=== PATIENT | male | born 1980 | race Caucasian/White ===

== ENCOUNTER 2018-10-13 12:10 | Inpatient (IN) | payer OTHER ==
[2018-10-13 16:49] VITALS: BMI 25.1
--- NOTE | 2018-10-13 17:32 | HP ---
Addendum entered and electronically signed by Mary Jane Burton, RESIDENT 10/13/18 17 :52: took methadone dose of 60mg today. will need to be restarted on for tomorrow; dose needs to be verified. pt part of [facility] program Original Note: CIWA Score Nausea/Vomitin-No Nausea/No Vomiting Muscle Tremors: None Anxiety: 0-No Anxiety, at Ease Agitation: 0-Normal Activity Paroxysmal Sweats: No Perspiration Orientation: 0-Oriented Tacttile Disturbances: 0-None Auditory Disturbances: 0-None Visual Disturbances: 0-None Headache: 0-None Present CIWA-Ar Total Score: 0 - Admission Criteria OASAS Guidelines: Admission for Medically Managed Detox: Requires at least one of the followin. CIWA greater than 12 2. Seizures within the past 24 hours 3. Delirium tremens within the past 24 hours 4. Hallucinations within the past 24 hours 5. Acute intervention needed for co occurring medical disorder 6. Acute intervention needed for co occurring psychiatric disorder 7. Severe withdrawal that cannot be handled at a lower level of care (continued vomiting, continued diarrhea, abnormal vital signs) requiring intravenous medication and/or fluids 8. Admission [facility] Chief Complaint: 38 y/o M with hx hepatitis c who presents for rehab from heroin , alcohol and cocaine. Allergies/Adverse Reactions: Allergies Allergy/AdvReac Type Severity Reaction Status Date / Time No Known Allergies Allergy Verified 10/13/18 16:40 History of Present Illness: 38 y/o M with hx hepatitis c(not on tx) who presents for rehab from heroin, cocaine and alcohol. Per pt, last used heroin 4 hrs ago; 2 bags worth via IVDA. Uses 8-9 bags daily. Injects into his arms b/l. No hx endocarditis, abscess or cellulitis. In a methadone program currently on a dose of 60 mg qd. Had been on 30mg previously. Longest sobriety 13 yrs via family support. States that he lost his job, which caused him to relapse. Last drank alcohol today - 3 shots liquor. Drinks this amount daily. No hx alcohol withdrawal sz. Never feels tremulous. Last used cocaine today 2 bags worth via IVDA. Uses speedball. Uses 8 -9 bags daily via IVDA. Was here yesterday for rehab. Was told to increase MTD dosage. however has returned because still concerned over using PMH: as above PsxH: denies meds: denies allergies; NKDA FH: mother - OD SH: cig smoking 1-2 cigs when he uses. Exam Limitations: No Limitations - Ebola screening Have you traveled outside of the country in the last 21 days: No Have you had contact with anyone from an Ebola affected area: No Have you been sick,other than usual withdrawal symptoms: No Do you have a fever: No - Review of Systems Constitutional: Loss of Appetite EENT: reports: No Symptoms Reported Respiratory: reports: No Symptoms reported Cardiac: reports: No Symptoms Reported GI: reports: No Symptoms Reported : reports: No Symptoms Reported Musculoskeletal: reports: No Symptoms Reported Integumentary: reports: No Symptoms Reported Neuro: reports: No Symptoms reported Endocrine: reports: No Symptoms Reported Hematology: reports: No Symptoms Reported Psychiatric: reports: Orientated x3 Patient History - Patient Medical History Hx Anemia: No Hx Asthma: No Hx Chronic Obstructive Pulmonary Disease (COPD): No Hx Cancer: No Hx Cardiac Disorders: No Hx Congestive Heart Failure: No Hx Hypertension: No Hx Hypercholesterolemia: No Hx Pacemaker: No HX Cerebrovascular Accident: No Hx Seizures: No Hx Dementia: No Hx Diabetes: No Hx Gastrointestinal Disorders: No Hx Liver Disease: Yes (HCV ) Hx Genitourinary Disorders: No Hx Sexually Transmitted Disorders: No Hx Renal Disease (ESRD): No Hx Thyroid Disease: No Hx Human Immunodeficiency Virus (HIV): No Hx Hepatitis C: Yes (UNTREATED ) Hx Depression: No Hx Suicide Attempt: No Hx Bipolar Disorder: No Hx Schizophrenia: No - Patient Surgical History Past Surgical History: No - PPD History Documented Results: Negative w/o proof PPD to be Administered?: Yes - Reproductive History Patient is a Female of Child Bearing Age (11 -55 yrs old): No - Smoking Cessation Smoking history: Current every day smoker Have you smoked in the past 12 months: Yes Aproximately how many cigarettes per day: 5 Initiated information on smoking cessation: Yes 'Breaking Loose' booklet given: 10/13/18 - Substance & Tx. History Hx Alcohol Use: Yes Substance Use Type: Alcohol, Cocaine, Heroin Hx Substance Use Treatment: Yes ([facility] yrs ago) - Substances abused Alcohol Other (specify): DENIES ALCOHOL ABUSE OR DEPENDENCE Substance route: Oral Frequency: Daily Amount used: 1/2 pint rum Age of first use: 21 Date of last use: 10/13/18 Heroin Substance route: Injection Frequency: Daily Amount used: 10 bags Age of first use: 21 Date of last use: 10/13/18 Cocaine Substance route: Injection Frequency: Daily Amount used: 9-10 Age of first use: Date of last use: 10/13/18 Family Disease History - Family Disease History Family Disease History: Other: Mother (overdose) Admission Physical Exam [facility] - Vital Signs Vital Signs: Vital Signs - 24 hr 10/13/18 16:42 Temperature 97.6 F Pulse Rate 61 Respiratory 18 Rate Blood Pressure 116/72 - Physical General Appearance: Yes: Within Normal Limits HEENTM: Yes: Within Normal Limits Respiratory: Yes: Within Normal Limits, Lungs Clear Neck: Yes: Supple Breast: Yes: Breast Exam Deferred Cardiology: Yes: Regular Rhythm, Regular Rate, S1, S2 Abdominal: Yes: Within Normal Limits Genitourinary: Yes: Within Normal Limits Back: Yes: Within Normal Limits Musculoskeletal: Yes: Within Normal Limits Extremities: Yes: Other (+ue track george, tattoos) 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 Integumentary: Yes: Within Normal Limits Lymphatic: Yes: Within Normal Limits - Diagnostic (1) Nicotine dependence Current Visit: Yes Status: Chronic (2) Cocaine dependence Current Visit: Yes Status: Chronic (3) HCV (hepatitis C virus) Current Visit: Yes Status: Chronic (4) Opioid dependence on agonist therapy Current Visit: Yes Status: Chronic Cleared for Admission [facility] - Detox or Rehab [facility] Level of Care: Medically Managed Detox Regimen/Protocol: Not Applicable Claeared for Rehab Admission: Yes Breathalyzer - Breathalyzer Breathalyzer: 0 Urine Drug Screen - Test Device Lot number: [id number] Expiration date: 07/18/18 - Control Is test valid?: Yes - Results Drug screen NEGATIVE: No Urine drug screen results: CHRIS-Cocaine, FEN-Fentanyl, MOP-Opiates, OXY-Oxycodone , MTD-Methadone Inpatient Rehab Admission - Rehab Decision to Admit Inpatient rehab admission?: Yes - Initial Determination Are CD services needed?: Yes Free of communicable disease: Yes Not in need of hospitalization: Yes - Rehab Admission Criteria Previous failed treatment: Yes Poor recovery environment: Yes Comorbidities: Yes Lacks judgement: No Patient is meeting Inpatient Rehab admission criteria:: Yes
[2018-10-13] MEDS ORDERED: IBUPROFEN 400 MG TABLET (FP) PO PRN (17:49)
[2018-10-13] MEDS ORDERED: LOPERAMIDE HCL 2 MG CAPSULE PO PRN (17:49)
[2018-10-13] MEDS ORDERED: guaiFENesin 200 MG/10 ML 10 ML UNIT-DOSE CUPS PO PRN (17:49)
[2018-10-13] MEDS ORDERED: MENTHOL/PHENOL 1 EACH UD MM PRN (17:49)
[2018-10-13] MEDS ORDERED: hydrOXYzine PAMOATE 25 MG CAPSULE (FP) PO PRN (17:49)
[2018-10-13] MEDS ORDERED: MAG HYDROX/AL HYDROX/SIMETH 30 ML UNIT-DOSE CUP PO PRN (17:49)
[2018-10-13] MEDS ORDERED: P-EPHED 60MG/TRIPROLIDI 2.5MG TABLET PO PRN (17:49)
[2018-10-13] MEDS ORDERED: MAGNESIUM HYDROX 2400MG/30ML ORAL SUSPENSION 30 ML CUP PO PRN (17:49)
[2018-10-13] MEDS ORDERED: ACETAMINOPHEN 325 MG TABLET (FP) PO PRN (17:49)
--- NOTE | 2018-10-13 17:52 | PN ---
Teaching Attending Note Name of Resident: Mary Jane Burton ATTENDING PHYSICIAN STATEMENT I saw and evaluated the patient. I reviewed the resident's note and discussed the case with the resident. I agree with the resident's findings and plan as documented. SUBJECTIVE: pt here requesting detox . Claims etoh use - pt was here 2 days ago ( see note 10/11/18 ) denying alcohol use , today states 3 shots/day , denies blackouts/ tremors or seizures . opiate use : heroin ivdu in [place] [facility] , 8-9 bags daily while in [facility] 60 mg @ [facility] x 1 yr . Longest sobriety 13 yrs via family support. cocaine: 2 bags today via IVDU , usually 8-9 bags daily via IVDU. OBJECTIVE: wnwd , no distress resp : no distress noted ASSESSMENT AND PLAN: cocaine dependence - rehab opioid dependence on agonist therapy Problem List - Problems (1) Cocaine dependence Code(s): F14.20 - COCAINE DEPENDENCE, UNCOMPLICATED Qualifiers: Substance use status: uncomplicated Qualified Code(s): F14.20 - Cocaine dependence, uncomplicated (2) Opioid dependence on agonist therapy Code(s): F11.20 - OPIOID DEPENDENCE, UNCOMPLICATED
[2018-10-14] MEDS: PRENATAL VITAMINS W/ FOLIC ACID TABLET (FP) PO SCH (10:32)
[2018-10-14 10:34] LABS: HEMATOCRIT 35.8 % (35.4-49); HEMOGLOBIN 12.2 GM/dL (11.7-16.9); MEAN CELL VOLUME 88.1 fl (80-96); MEAN PLT VOLUME 9.8 fl (7.5-11.1); PLATELET COUNT 221 K/MM3 (134-434); RBC 4.06 M/mm3 (4.00-5.60); RDW 12.7 % (11.9-15.9); WHITE BLOOD COUNT 3.9 K/mm3 (4.0-10.0)
[2018-10-14 10:35] LABS: ALBUMIN 3.2 g/dl (3.4-5.0); BILIRUBIN,TOTAL 0.3 mg/dL (0.2-1); BLOOD UREA NITROGEN 12.9 mg/dL (7-18); CALCIUM 8.6 mg/dL (8.5-10.1); CREATININE 0.8 mg/dL (0.55-1.3); POTASSIUM 4.5 mmol/L (3.5-5.1); TOT PROT 6.8 g/dl (6.4-8.2)
[2018-10-14] MEDS ORDERED: METHADONE HCL 10 MG TABLET PO SCH (13:00)
[2018-10-14] MEDS ORDERED: METHADONE HCL 10 MG TABLET ONE (13:42)
[2018-10-14] MEDS ORDERED: METHADONE HCL 40 MG DISPERSABLE TABLET ONE (13:42)
[2018-10-14] MEDS: METHADONE 40 MG, METHADONE 20 MG PO SCH (13:43)
[2018-10-15] MEDS ORDERED: METHADONE HCL 10 MG TABLET ONE (05:46)
[2018-10-15] MEDS ORDERED: METHADONE HCL 40 MG DISPERSABLE TABLET ONE (05:46)
[2018-10-15] MEDS: METHADONE 40 MG, METHADONE 20 MG PO SCH (06:43)
[2018-10-15] MEDS: PRENATAL VITAMINS W/ FOLIC ACID TABLET (FP) PO SCH (10:14)
[2018-10-15] MEDS: MELATONIN 5 MG TABLETS PO PRN (21:45)
[2018-10-16] MEDS ORDERED: METHADONE HCL 10 MG TABLET ONE (06:21)
[2018-10-16] MEDS: METHADONE 40 MG, METHADONE 20 MG PO SCH (06:22)
[2018-10-16] MEDS ORDERED: METHADONE HCL 40 MG DISPERSABLE TABLET ONE (06:22)
[2018-10-16] MEDS: PRENATAL VITAMINS W/ FOLIC ACID TABLET (FP) PO SCH (10:16)
[2018-10-16] MEDS: MELATONIN 5 MG TABLETS PO PRN (22:02)
[2018-10-17] MEDS: METHADONE 40 MG, METHADONE 20 MG PO SCH (06:18)
[2018-10-17] MEDS ORDERED: METHADONE HCL 40 MG DISPERSABLE TABLET ONE (06:18)
[2018-10-17] MEDS ORDERED: METHADONE HCL 10 MG TABLET ONE (06:18)
[2018-10-17] MEDS: PRENATAL VITAMINS W/ FOLIC ACID TABLET (FP) PO SCH (10:23)
[2018-10-17] MEDS: MELATONIN 5 MG TABLETS PO PRN (21:31)
[2018-10-18] MEDS ORDERED: METHADONE HCL 10 MG TABLET ONE (05:58)
[2018-10-18] MEDS ORDERED: METHADONE HCL 40 MG DISPERSABLE TABLET ONE (05:58)
[2018-10-18] MEDS: METHADONE 40 MG, METHADONE 20 MG PO SCH (06:25)
[2018-10-18 06:45] VITALS: BP 109/72
[2018-10-18] MEDS: PRENATAL VITAMINS W/ FOLIC ACID TABLET (FP) PO SCH (11:00)
[2018-10-18] MEDS: MELATONIN 5 MG TABLETS PO PRN (21:28)
[2018-10-19] MEDS ORDERED: METHADONE HCL 10 MG TABLET ONE (05:48)
[2018-10-19] MEDS ORDERED: METHADONE HCL 40 MG DISPERSABLE TABLET ONE (05:48)
[2018-10-19] MEDS: METHADONE 40 MG, METHADONE 20 MG PO SCH (06:36)
[2018-10-19 07:05] VITALS: PULSE 67; TEMP 98.1
--- NOTE | 2018-10-19 10:05 | PN ---
[facility] Progress Note (SOAP) Subjective: pt is a 38 y/o male admitted to rehab on 10/13/18 requesting to sign out today stating "I got things to do. My family is coming to pick me up". Pt with a hx of i.v heroin and cocaine use on methadone maintenance with [facility] services. Pt reports hx hep c and denies past psych hx. Pt is new to this facility and has a hx of ppd+(QTF+ on 10/14/18 here) and decline to follow through with chest xray while here in rehab because he wants to leave today. [facility] and spoke to certified nursing assistant instructor Hattie Brock RN to verify pt' s status and previous test/treatment. Ms. Brock was unable to give information as she could not reach anyone in their medical records section. Pt will follow up tomorrow with his [facility] and Ms. brock has been updated on patient's situation. Pt denies s/h/i. Objective: 10/19/18 10:33 Alert o x 3 Ambulating with steady gait Vital Signs - 24 hr 10/19/18 10/19/18 10/19/18 00:30 03:30 07:04 Temperature 98.1 F Pulse Rate 67 Respiratory 18 18 16 Rate Laboratory Tests 10/14/18 10/14/18 10/14/18 07:50 07:50 07:50 WBC 3.9 L RBC 4.06 Hgb 12.2 Hct 35.8 MCV 88.1 MCH 30.0 MCHC 34.0 RDW 12.7 Plt Count 221 MPV 9.8 Sodium 143 Potassium 4.5 Chloride 110 H Carbon Dioxide 27 Anion Gap 6 L BUN 12.9 Creatinine 0.8 Est GFR (CKD-EPI)AfAm 129.51 Est GFR (CKD-EPI)NonAf 111.74 Random Glucose 86 Calcium 8.6 Total Bilirubin 0.3 AST 22 ALT 34 Alkaline Phosphatase 73 Total Protein 6.8 Albumin 3.2 L RPR Titer Nonreactive TB (QFT) Incubation TB Test (QFT) Nil TB Test (QFT) Mitogen TB Test (QFT) Antigen TB Test (QFT) TB Positive Criteria 10/14/18 07:50 WBC RBC Hgb Hct MCV MCH MCHC RDW Plt Count MPV Sodium Potassium Chloride Carbon Dioxide Anion Gap BUN Creatinine Est GFR (CKD-EPI)AfAm Est GFR (CKD-EPI)NonAf Random Glucose Calcium Total Bilirubin AST ALT Alkaline Phosphatase Total Protein Albumin RPR Titer TB (QFT) Incubation TB Test (QFT) Nil 0.14 TB Test (QFT) Mitogen 7.14 TB Test (QFT) Antigen 2.64 TB Test (QFT) Positive H TB Positive Criteria lab results given to pt to follow up with medical provider. Home Medications Medication Instructions Recorded Methadone [Dolophine -] 60 mg PO DAILY 10/11/18 Assessment: 10/19/18 10:34 Nad Asymptomatic Incomplete Treatment [facility] Inpatient Services Medical - Diagnosis (1) Cocaine dependence Qualifiers: Substance use status: uncomplicated Qualified Code(s): F14.20 - Cocaine dependence, uncomplicated Current Visit: Yes Status: Chronic (2) HCV (hepatitis C virus) Current Visit: Yes Status: Chronic (3) Nicotine dependence Qualifiers: Nicotine product type: cigarettes Substance use status: uncomplicated Qualified Code(s): F17.210 - Nicotine dependence, cigarettes, uncomplicated Current Visit: Yes Status: Chronic (4) Opioid dependence on agonist therapy Current Visit: Yes Status: Chronic (5) IVDU (intravenous drug user) Current Visit: Yes Status: Chronic Initialized on 10/19/18 10:05 - END OF NOTE 10/19/18 10:53 Plan: Pt signed out AMA Follow up with CD aftercare @ [facility] [place] as recommended. Follow up with primary care at [facility] within 1-2 weeks after discharge.
[2018-10-19] MEDS: PRENATAL VITAMINS W/ FOLIC ACID TABLET (FP) PO SCH (11:33)
== END 2018-10-19 11:00 | disposition left against medical advice (07) | DRG 770 ==
LOC: YASAS 12:10 → Y5N 17:53
PROVIDERS: ADMIT Neuromusculoskeletal Medicine & OMM; ATTEND Surgery
PROC: HZ42ZZZ Group Counseling for Substance Abuse Treatment, Cognitive-Behavioral (ICD-10-PCS; principal; 2018-10-13)
DX: F14.20 Cocaine dependence, uncomplicated (principal); F11.20 Opioid dependence, uncomplicated; F17.210 Nicotine dependence, cigarettes, uncomplicated; B18.2 Chronic viral hepatitis C
CPT/HCPCS: 36415; 80053; 85027; 86480; 86593

== ENCOUNTER 2019-03-14 10:52 | Inpatient (IN) | payer OTHER ==
[2019-03-14 11:24] VITALS: BMI 26.6
--- NOTE | 2019-03-14 12:19 | HP ---
COWS - Scale Resting Pulse: 1= [place] 81-100 Sweatin= Chills/Flushing Restless Observation: 1= Difficult to Sit Still Pupil Size: 1= Pupils >than Normal Bone or Joint Aches: 2= Severe Diffuse Aches Runny Nose/ Eye Tearin= Runny Nose/Eyes GI Upset > 30mins: 3= Vomiting/Diarrhea Tremor Observation: 2= Slight Tremor Visible Yawning Observation: 1= 1-2x During Session Anxiety or Irritability: 2=Irritable/Anxious Goose Flesh Skin: 0=Smooth Skin COWS Score: 16 CIWA Score - Admission Criteria OASAS Guidelines: Admission for Medically Managed Detox: Requires at least one of the followin. CIWA greater than 12 2. Seizures within the past 24 hours 3. Delirium tremens within the past 24 hours 4. Hallucinations within the past 24 hours 5. Acute intervention needed for co occurring medical disorder 6. Acute intervention needed for co occurring psychiatric disorder 7. Severe withdrawal that cannot be handled at a lower level of care (continued vomiting, continued diarrhea, abnormal vital signs) requiring intravenous medication and/or fluids 8. Admitting History and Physical - Admission Chief Complaint: i need help to stop using heroin,cocaine,marijuana History of Present Illness: this 38 year old male with heroin,cocaine and marijuana dependence,seeking detox ,withdrawal symptom multiple admission [facility] detox,last detox [facility] in 01/06 not completed hepatitis c seen in [facility] denied seizure denied syncope nicotine dependence 3 cigarette anxiety,depression,insomnia plan for rehab after detox weight loss 20 lbs History Source: Patient Limitations to Obtaining History: No Limitations - Past Medical History Hepatobiliary: Yes: Hepatitis C Psych: Yes: Anxiety, Depression, Other (insomnia) - Smoking History Smoking history: Current every day smoker Have you smoked in the past 12 months: Yes Aproximately how many cigarettes per day: 5 - Alcohol/Substance Use Hx Alcohol Use: Yes - Social History Usual Living Arrangement: Yes: Other (with and children) ADL: Support Services Occupation: unemployed History of Recent Travel: No Other Social History: this 38 years old male with heroin,cociane and marijuana dependence,seeking detox,withdraawal symptom,unemploed,nena with family, and children,. for inpatient detox methadone regimen,medicaaly manage Admission ROS [facility] - HPI Chief Complaint: i need help to stop sing heroin,cocaine and marijuana Allergies/Adverse Reactions: Allergies Allergy/AdvReac Type Severity Reaction Status Date / Time Fish Containing Products Allergy Verified 03/14/19 11:26 History of Present Illness: for detox Exam Limitations: No Limitations - Ebola screening Have you traveled outside of the country in the last 21 days: No (N) Have you had contact with anyone from an Ebola affected area: No Do you have a fever: No - Review of Systems Constitutional: Chills, Loss of Appetite, Night Sweats, Changes in sleep, Weakness, Weight Stable, Unintentional Wgt. Loss EENT: reports: Tearing, Nose Congestion Respiratory: reports: No Symptoms reported Cardiac: reports: No Symptoms Reported GI: reports: Diarrhea, Nausea, Vomiting : reports: No Symptoms Reported Musculoskeletal: reports: Back Pain, Joint Pain, Muscle Pain Integumentary: reports: Dryness Neuro: reports: Headache, Tremors Endocrine: reports: No Symptoms Reported Hematology: reports: No Symptoms Reported Psychiatric: reports: No Sypmtoms Reported, Judgement Intact, Mood/Affect Appropiate, Orientated x3, Anxious (insomnia) Other Systems: Reviewed and Negative Patient History - Patient Medical History Hx Anemia: No Hx Asthma: No Hx Chronic Obstructive Pulmonary Disease (COPD): No Hx Cancer: No Hx Cardiac Disorders: No Hx Congestive Heart Failure: No Hx Hypertension: No Hx Hypercholesterolemia: No Hx Pacemaker: No HX Cerebrovascular Accident: No Hx Seizures: No Hx Dementia: No Hx Diabetes: No Hx Gastrointestinal Disorders: No Hx Liver Disease: Yes (HCV hepatitis c) Hx Genitourinary Disorders: No Hx Sexually Transmitted Disorders: No Hx Renal Disease (ESRD): No Hx Thyroid Disease: No Hx Human Immunodeficiency Virus (HIV): No Hx Hepatitis C: Yes (UNTREATED ,seen in [facility]) Hx Depression: Yes (anxiety) Hx Suicide Attempt: No Hx Bipolar Disorder: No Hx Schizophrenia: No Other Medical History: insomnia,no suicidal,no homicidal - Patient Surgical History Past Surgical History: No Hx Neurologic Surgery: No Hx Cataract Extraction: No Hx Cardiac Surgery: No Hx Lung Surgery: No Hx Breast Surgery: No Hx Breast Biopsy: No Hx Abdominal Surgery: No Hx Appendectomy: No Hx Cholecystectomy: No Hx Genitourinary Surgery: No Hx Section: No Hx Orthopedic Surgery: No Anesthesia Reaction: No - PPD History Documented Results: Positive w/o proof PPD to be Administered?: No - Smoking Cessation Smoking history: Current every day smoker Have you smoked in the past 12 months: Yes Aproximately how many cigarettes per day: 5 Initiated information on smoking cessation: Yes 'Breaking Loose' booklet given: 03/14/19 - Substance & Tx. History Hx Alcohol Use: Yes Hx Substance Use: Yes Substance Use Type: Alcohol, Cocaine, Heroin, Marijuana Hx Substance Use Treatment: Yes ([facility] 01/06) - Substances abused Alcohol Other (specify): DENIES ALCOHOL ABUSE OR DEPENDENCE Substance route: Oral Frequency: Daily Amount used: 1/2 pint rum Age of first use: 21 Date of last use: 10/13/18 Heroin Substance route: Injection Frequency: Daily Amount used: 10 bags Age of first use: 25 Date of last use: 03/14/19 Cocaine Substance route: Injection Frequency: Daily Amount used: 1 bundle Age of first use: 25 Date of last use: 03/14/19 Marijuana/Hashish Substance route: Smoking Frequency: 1-3 times last 30 days Amount used: 5$ Age of first use: 8 Date of last use: 03/07/19 Admission Physical Exam S - Vital Signs Vital Signs: Vital Signs - 24 hr 03/14/19 11:18 Temperature 98 F Pulse Rate 84 Respiratory 20 Rate Blood Pressure 124/67 - Physical General Appearance: Yes: Moderate Distress, Tremorous, Irritable, Sweating, Anxious HEENTM: Yes: Normal ENT Inspection, PANDA, Pharynx Normal Respiratory: Yes: Within Normal Limits Neck: Yes: Within Normal Limits, Supple, Trachea in good position Breast: Yes: Within Normal Limits Cardiology: Yes: Within Normal Limits, Regular Rhythm, Regular Rate, S1, S2 Abdominal: Yes: Within Normal Limits, Normal Bowel Sounds, Non Tender, Flat, Soft Genitourinary: Yes: Within Normal Limits Back: Yes: Muscle Spasm Musculoskeletal: Yes: Back pain, Muscle Pain Extremities: Yes: Tremors 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, Fully Oriented, Alert, Motor Strength 5/5 Integumentary: Yes: Dry Lymphatic: Yes: Within Normal Limits - Diagnostic (1) Opioid dependence with withdrawal Current Visit: Yes Status: Acute (2) Cocaine dependence Current Visit: No Status: Chronic Qualifiers: Substance use status: uncomplicated Qualified Code(s): F14.20 - Cocaine dependence, uncomplicated (3) IVDU (intravenous drug user) Current Visit: No Status: Chronic (4) Nicotine dependence Current Visit: No Status: Chronic Qualifiers: Nicotine product type: cigarettes Substance use status: uncomplicated Qualified Code(s): F17.210 - Nicotine dependence, cigarettes, uncomplicated (5) Weight loss Current Visit: Yes Status: Acute (6) Dehydration Current Visit: Yes Status: Acute Cleared for Admission S - Detox or Rehab [facility] Level of Care: Medically Managed Detox Regimen/Protocol: Methadone Breathalyzer - Breathalyzer Breathalyzer: 0 Urine Drug Screen - Test Device Lot number: [id number] Expiration date: 10/18/20 - Control Is test valid?: Yes - Results Drug screen NEGATIVE: No Urine drug screen results: THC-Marijuana, CHRIS-Cocaine, FEN-Fentanyl, MOP-Opiates , MTD-Methadone Inpatient Rehab Admission - Rehab Decision to Admit Inpatient rehab admission?: No
[2019-03-14] MEDS ORDERED: MAGNESIUM CITRATE 300 ML BOTTLE PO PRN (12:35)
[2019-03-14] MEDS ORDERED: hydrOXYzine PAMOATE 25 MG CAPSULE (FP) PO PRN (12:35)
[2019-03-14] MEDS ORDERED: cloNIDine HCL 0.1 MG TABLET PO PRN (12:35)
[2019-03-14] MEDS ORDERED: BISMUTH SUBSALICYLATE 524 MG/30 ML UD PO PRN (12:35)
[2019-03-14] MEDS ORDERED: MAGNESIUM HYDROX 2400MG/30ML ORAL SUSPENSION 30 ML CUP PO PRN (12:35)
[2019-03-14] MEDS ORDERED: METHADONE HCL 10 MG TABLET (FOR DETOX USE ONLY) PO ONE (12:35)
[2019-03-14] MEDS ORDERED: MENTHOL/PHENOL 1 EACH UD MM PRN (12:35)
[2019-03-14] MEDS ORDERED: IBUPROFEN 400 MG TABLET (FP) PO PRN (12:35)
[2019-03-14] MEDS ORDERED: ACETAMINOPHEN 325 MG TABLET (FP) PO PRN ×2 (12:35)
[2019-03-14] MEDS ORDERED: MAG HYDROX/AL HYDROX/SIMETH 30 ML UNIT-DOSE CUP PO PRN (12:35)
[2019-03-14] MEDS: diazePAM 5 MG TABLET PO PRN ×2 (13:38→22:33)
[2019-03-14] MEDS: HYDROCORTISONE 0.5% TOPICAL CREAM 30 GM TUBE TP SCH ×2 (15:00→23:08)
[2019-03-14] MEDS: THIAMINE HCL 100 MG TABLET (FP) PO SCH (22:31)
[2019-03-14] MEDS: MELATONIN 5 MG TABLETS PO PRN (22:32)
[2019-03-14] MEDS: METHOCARBAMOL 500 MG TABLET PO PRN (22:33)
[2019-03-15] MEDS: HYDROCORTISONE 0.5% TOPICAL CREAM 30 GM TUBE TP SCH ×3 (05:41→22:31)
[2019-03-15] MEDS ORDERED: METHADONE HCL 10 MG TABLET (FOR DETOX USE ONLY) ONE (09:33)
[2019-03-15] MEDS ORDERED: METHADONE HCL 5 MG TABLET (FOR DETOX USE ONLY) ONE (09:33)
[2019-03-15] MEDS ORDERED: METHADONE (DETOX) 20 MG, METHADONE (DETOX) 5 MG PO ONE (10:00)
--- NOTE | 2019-03-15 10:09 | CONSULT ---
[facility] Psychiatric Consult - Data Date of interview: 03/15/19 Admission source: Self-referred Identifying data: Mr Dhaliwal is a 38 years old male, father of 3 children, unemployed with no source of income, living with and children seeking detox treatment for opioid, cocaine and cannabis Substance Abuse History: Reports history of heroin, cocaine and marijuana use. Refer to addiction counselor's summary for further information Medical History: Significant for hepatitis C. Smokes 5 cigarettes daily Psychiatric History: Denies history of previous psychiatric treatment. However, reports experiencing difficulty to sleep Physical/Sexual Abuse/Trauma History: Denies history of abuse as a child or DV relationship as an adult Mental Status Exam - Mental Status Exam Alert and Oriented to: Time, Place, Person Patient Appearance: Disheveled Mood: Hopeful, Euthymic Patient Behavior: Cooperative Speech Pattern: Clear Voice Loudness: Normal Thought Process: Intact, Goal Oriented Thought Disorder: Not Present Hallucinations: Denies Suicidal Ideation: Denies Homicidal Ideation: Denies Insight/Judgement: Poor Sleep: Poorly Appetite: Good Muscle strength/Tone: Normal Gait/Station: Normal Psychiatric Findings - Problem List ([place] 1, 2,3) (1) Substance-induced sleep disorder Current Visit: Yes Status: Acute (2) Opioid dependence with withdrawal Current Visit: Yes Status: Acute (3) Cocaine dependence Current Visit: No Status: Acute Qualifiers: Substance use status: uncomplicated Qualified Code(s): F14.20 - Cocaine dependence, uncomplicated (4) Cannabis abuse Current Visit: Yes Status: Acute (5) Nicotine dependence Current Visit: No Status: Chronic Qualifiers: Nicotine product type: cigarettes Substance use status: uncomplicated Qualified Code(s): F17.210 - Nicotine dependence, cigarettes, uncomplicated (6) Hepatitis C Current Visit: Yes Status: Acute - Initial Treatment Plan Initial Treatment Plan: 1) Start Melatonin 5 mg po HS. 2) Continue inpatient detoxification
[2019-03-15] MEDS: PRENATAL VITAMINS W/ FOLIC ACID TABLET (FP) PO SCH (10:10)
[2019-03-15 10:11] LABS: HEMATOCRIT 37.1 % (35.4-49); HEMOGLOBIN 12.8 GM/dL (11.7-16.9); MCH 31.2 pg (25.7-33.7); MCHC 34.5 g/dl (32.0-35.9); MEAN CELL VOLUME 90.3 fl (80-96); MEAN PLT VOLUME 9.6 fl (7.5-11.1); PLATELET COUNT 190 K/MM3 (134-434); RBC 4.11 M/mm3 (4.00-5.60); RDW 13.4 % (11.9-15.9); WHITE BLOOD COUNT 5.2 K/mm3 (4.0-10.0)
[2019-03-15] MEDS: diazePAM 5 MG TABLET PO PRN ×2 (10:12→22:34)
[2019-03-15 10:25] LABS: ALBUMIN 3.2 g/dl (3.4-5.0); BILIRUBIN,TOTAL 0.2 mg/dL (0.2-1); BLOOD UREA NITROGEN 18.1 mg/dL (7-18); CALCIUM 8.2 mg/dL (8.5-10.1); CREATININE 0.8 mg/dL (0.55-1.3); POTASSIUM 3.8 mmol/L (3.5-5.1); TOT PROT 6.2 g/dl (6.4-8.2)
[2019-03-15] MEDS ORDERED: FLU VACCINE QUAD 60 MCG/0.5 ML (MDV 19-20) IM ONE (12:00)
--- NOTE | 2019-03-15 12:10 | PN ---
S COWS - Scale Resting Pulse: 0= DE 80 or Below Sweatin= Beads of Sweat on Face Restless Observation: 1= Difficult to Sit Still Pupil Size: 0= Normal to Room Light Bone or Joint Aches: 2= Severe Diffuse Aches Runny Nose/ Eye Tearin= None GI Upset > 30mins: 0= None Tremor Observation of Outstretched Hands: 2= Slight Tremor Visible Yawning Observation: 1= 1-2x During Session Anxiety or Irritability: 2=Irritable/Anxious Goose Flesh Skin: 0=Smooth Skin COWS Score: 11 S Progress Note (SOAP) Subjective: c/o irritability, anxiety, sweats, shakes, and muscle aches. Objective: 03/15/19 12:10 Vital Signs 03/15/19 03/15/19 06:36 09:13 Temperature 97.7 F 98.9 F Pulse Rate 72 80 Respiratory 18 18 Rate Blood Pressure 115/70 131/73 Laboratory Last Values WBC 5.2 K/mm3 (4.0-10.0) 03/15/19 07:10 RBC 4.11 M/mm3 (4.00-5.60) 03/15/19 07:10 Hgb 12.8 GM/dL (11.7-16.9) 03/15/19 07:10 Hct 37.1 % (35.4-49) 03/15/19 07:10 MCV 90.3 fl (80-96) 03/15/19 07:10 MCH 31.2 pg (25.7-33.7) 03/15/19 07:10 MCHC 34.5 g/dl (32.0-35.9) 03/15/19 07:10 RDW 13.4 % (11.9-15.9) 03/15/19 07:10 Plt Count 190 K/MM3 (134-434) 03/15/19 07:10 MPV 9.6 fl (7.5-11.1) 03/15/19 07:10 Sodium 141 mmol/L (136-145) 03/15/19 07:10 Potassium 3.8 mmol/L (3.5-5.1) 03/15/19 07:10 Chloride 110 mmol/L (98-107) H 03/15/19 07:10 Carbon Dioxide 27 mmol/L (21-32) 03/15/19 07:10 Anion Gap 3 MMOL/L (8-16) L 03/15/19 07:10 BUN 18.1 mg/dL (7-18) H 03/15/19 07:10 Creatinine 0.8 mg/dL (0.55-1.3) 03/15/19 07:10 Est GFR (CKD-EPI)AfAm 129.51 03/15/19 07:10 Est GFR (CKD-EPI)NonAf 111.74 03/15/19 07:10 Random Glucose 121 mg/dL (74-106) H 03/15/19 07:10 Calcium 8.2 mg/dL (8.5-10.1) L 03/15/19 07:10 Total Bilirubin 0.2 mg/dL (0.2-1) 03/15/19 07:10 AST 33 U/L (15-37) 03/15/19 07:10 ALT 56 U/L (13-61) 03/15/19 07:10 Alkaline Phosphatase 66 U/L (45-117) 03/15/19 07:10 Total Protein 6.2 g/dl (6.4-8.2) L 03/15/19 07:10 Albumin 3.2 g/dl (3.4-5.0) L 03/15/19 07:10 RPR Titer Nonreactive (NONREACTIVE) 03/15/19 07:10 Labs noted. Assessment: 03/15/19 12:11 AOX3, in no respiratory distress. Full ROM, ambulating in the unit. Withdrawal symptoms. Plan: continue detox.
[2019-03-15] MEDS: THIAMINE HCL 100 MG TABLET (FP) PO SCH (22:31)
[2019-03-15] MEDS: MELATONIN 5 MG TABLETS PO PRN (22:32)
[2019-03-16] MEDS: HYDROCORTISONE 0.5% TOPICAL CREAM 30 GM TUBE TP SCH ×3 (06:06→21:29)
[2019-03-16] MEDS ORDERED: METHADONE HCL 10 MG TABLET (FOR DETOX USE ONLY) PO ONE (10:00)
[2019-03-16] MEDS: PRENATAL VITAMINS W/ FOLIC ACID TABLET (FP) PO SCH (10:08)
[2019-03-16] MEDS: diazePAM 5 MG TABLET PO PRN ×2 (10:10→21:32)
--- NOTE | 2019-03-16 10:48 | PN ---
[facility] COWS - Scale Resting Pulse: 0= [place] 80 or Below Sweatin= Chills/Flushing Restless Observation: 1= Difficult to Sit Still Pupil Size: 0= Normal to Room Light Bone or Joint Aches: 2= Severe Diffuse Aches Runny Nose/ Eye Tearin= Runny Nose/Eyes GI Upset > 30mins: 0= None Tremor Observation of Outstretched Hands: 1= Tremor [place], Not Seen Yawning Observation: 1= 1-2x During Session Anxiety or Irritability: 2=Irritable/Anxious Goose Flesh Skin: 0=Smooth Skin COWS Score: 10 BHS Progress Note (SOAP) Subjective: nasal congestions sweats chills body aches headache interrupted sleep Objective: 03/16/19 10:47 Vital Signs Temperature 98.1 F 03/16/19 09:14 Pulse Rate 74 03/16/19 09:14 Respiratory Rate 18 03/16/19 09:14 Blood Pressure 131/79 03/16/19 09:14 O2 Sat by Pulse Oximetry (%) Laboratory Tests 03/15/19 03/15/19 03/15/19 07:10 07:10 07:10 WBC 5.2 RBC 4.11 Hgb 12.8 Hct 37.1 MCV 90.3 MCH 31.2 MCHC 34.5 RDW 13.4 Plt Count 190 MPV 9.6 Sodium 141 Potassium 3.8 Chloride 110 H Carbon Dioxide 27 Anion Gap 3 L BUN 18.1 H Creatinine 0.8 Est GFR (CKD-EPI)AfAm 129.51 Est GFR (CKD-EPI)NonAf 111.74 Random Glucose 121 H Calcium 8.2 L Total Bilirubin 0.2 AST 33 ALT 56 Alkaline Phosphatase 66 Total Protein 6.2 L Albumin 3.2 L RPR Titer Nonreactive labs noted aaox3 ambulating no acute distress Assessment: 03/16/19 10:47 withdrawals Plan: continue detox increase fluids
[2019-03-16] MEDS: THIAMINE HCL 100 MG TABLET (FP) PO SCH (21:32)
[2019-03-16] MEDS: METHOCARBAMOL 500 MG TABLET PO PRN (21:33)
[2019-03-16] MEDS: MELATONIN 5 MG TABLETS PO PRN (21:34)
[2019-03-17] MEDS: HYDROCORTISONE 0.5% TOPICAL CREAM 30 GM TUBE TP SCH ×2 (07:22→13:53)
[2019-03-17] MEDS ORDERED: METHADONE HCL 10 MG TABLET (FOR DETOX USE ONLY) ONE (09:22)
[2019-03-17] MEDS ORDERED: METHADONE HCL 5 MG TABLET (FOR DETOX USE ONLY) ONE (09:22)
[2019-03-17] MEDS ORDERED: METHADONE (DETOX) 10 MG, METHADONE (DETOX) 5 MG PO ONE (10:00)
[2019-03-17] MEDS: PRENATAL VITAMINS W/ FOLIC ACID TABLET (FP) PO SCH (10:12)
[2019-03-17] MEDS: diazePAM 5 MG TABLET PO PRN (10:16)
[2019-03-17] MEDS: METHOCARBAMOL 500 MG TABLET PO PRN (10:17)
--- NOTE | 2019-03-17 12:28 | PN ---
[facility] COWS - Scale Resting Pulse: 0= [place] 80 or Below Sweatin= Chills/Flushing Restless Observation: 1= Difficult to Sit Still Pupil Size: 0= Normal to Room Light Bone or Joint Aches: 2= Severe Diffuse Aches Runny Nose/ Eye Tearin= Nasal Congestion GI Upset > 30mins: 0= None Tremor Observation of Outstretched Hands: 0= None Yawning Observation: 1= 1-2x During Session Anxiety or Irritability: 2=Irritable/Anxious Goose Flesh Skin: 0=Smooth Skin COWS Score: 8 BHS Progress Note (SOAP) Subjective: Sweating, Anxious, Fatigue, Nasal Congestion Objective: PATIENT A & O X 3, OBSERVED AMBULATING ON UNIT UNASSISTED. IN NO ACUTE DISTRESS. 03/17/19 12:37 Vital Signs Temperature 96.3 F L 03/17/19 09:21 Pulse Rate 75 03/17/19 09:21 Respiratory Rate 16 03/17/19 09:21 Blood Pressure 129/77 03/17/19 09:21 O2 Sat by Pulse Oximetry (%) Laboratory Tests 03/15/19 03/15/19 03/15/19 07:10 07:10 07:10 WBC 5.2 RBC 4.11 Hgb 12.8 Hct 37.1 MCV 90.3 MCH 31.2 MCHC 34.5 RDW 13.4 Plt Count 190 MPV 9.6 Sodium 141 Potassium 3.8 Chloride 110 H Carbon Dioxide 27 Anion Gap 3 L BUN 18.1 H Creatinine 0.8 Est GFR (CKD-EPI)AfAm 129.51 Est GFR (CKD-EPI)NonAf 111.74 Random Glucose 121 H Calcium 8.2 L Total Bilirubin 0.2 AST 33 ALT 56 Alkaline Phosphatase 66 Total Protein 6.2 L Albumin 3.2 L RPR Titer Nonreactive LABS NOTED. Assessment: 03/17/19 12:38 WITHDRAWAL SYMPTOMS. Plan: CONTINUE DETOX. INCREASE DAILY ORAL WATER INTAKE. RESULTS OF CXR DONE ON DETOX ADMISSION (FOR HISTORY OF POSITIVE PPD) NOTED. NO EVIDENCE OF ACUTE PROCESS OR INFILTRATE NOTED ON CXR REPORT. PATIENT ADVISED TO FOLLOW-UP WITH PRIMARY CARE MEDICAL PROVIDER AFTER DISCHARGE FROM DETOX FOR FURTHER MEDICAL EVALUATION OF CHRONIC ABNORMALITIES NOTED ON CXR REPORT. COPY OF REPORT GIVEN TO PATIENT TO TAKE WITH HIM FOR EVALUATION BY HIS PRIMARY CARE MEDICAL PROVIDER AFTER TIME OF DISCHARGE FROM DETOX.
[2019-03-17 13:22] VITALS: BP 138/72; PULSE 79; TEMP 97.7
--- NOTE | 2019-03-17 16:52 | DS ---
[facility] Detox Discharge Summary Admission Date: 03/14/19 Discharge Date: 03/17/19 - History Present History: Cannabis Dependence, Cocaine Dependence, Opioid Dependence Additional Comments: DESPITE EFFORTS BY LANDSCAPE ARCHITECTURE TEACHER AND BY NURSING STAFF TO ADDRESS PATIENT'S MEDICAL NEEDS / CONCERNS, PATIENT DOES NOT WISH TO REMAIN TO COMPLETE DETOX REGIMEN. RISKS OF LEAVING DETOX UNIT AGAINST MEDICAL ADVICE AND PRIOR TO COMPLETION OF DETOX REGIMEN EXPLAINED TO PATIENT. PATIENT ADVISED TO GO IMMEDIATELY TO NEAREST ER SHOULD ANY INTOLERABLE WITHDRAWAL / DETOX SYMPTOMS DEVELOP AT ANY TIME. PATIENT AGAIN ADVISED TO FOLLOW-UP WITH PRIMARY CARE MEDICAL PROVIDER AFTER DISCHARGE FROM DETOX FOR FURTHER MEDICAL EVALUATION OF CHRONIC ABNORMALITIES NOTED ON CXR REPORT (SEE PREVIOUS C.O.W.S. / SOAP NOTE FOR 03/17/2019). PATIENT VERBALIZED UNDERSTANDING OF ALL INFORMATION / RECOMMENDATIONS PRESENTED TO HIM PRIOR TO DEPARTURE FROM DETOX UNIT. PATIENT LEFT DETOX UNIT IN STABLE MEDICAL CONDITION. Pertinent Past History: Hep C, Nicotine Dependence, Anxiety, Depression, Insomnia, Weight Loss, Intravenous Drug User, Dehydration. - Physical Exam Results Vital Signs: Vital Signs Temperature 97.7 F 03/17/19 13:21 Pulse Rate 79 03/17/19 13:21 Respiratory Rate 18 03/17/19 13:21 Blood Pressure 138/72 03/17/19 13:21 O2 Sat by Pulse Oximetry (%) Pertinent Admission Physical Exam Findings: WITHDRAWAL SYMPTOMS. Laboratory Tests 03/15/19 03/15/19 03/15/19 07:10 07:10 07:10 WBC 5.2 RBC 4.11 Hgb 12.8 Hct 37.1 MCV 90.3 MCH 31.2 MCHC 34.5 RDW 13.4 Plt Count 190 MPV 9.6 Sodium 141 Potassium 3.8 Chloride 110 H Carbon Dioxide 27 Anion Gap 3 L BUN 18.1 H Creatinine 0.8 Est GFR (CKD-EPI)AfAm 129.51 Est GFR (CKD-EPI)NonAf 111.74 Random Glucose 121 H Calcium 8.2 L Total Bilirubin 0.2 AST 33 ALT 56 Alkaline Phosphatase 66 Total Protein 6.2 L Albumin 3.2 L RPR Titer Nonreactive LABS NOTED. - Medication Discharge Medications: Ambulatory Orders NK [No Known Home Medication] 03/14/19 - Diagnosis (1) Cannabis abuse Status: Acute (2) Cocaine dependence Status: Acute Qualifiers: Substance use status: uncomplicated Qualified Code(s): F14.20 - Cocaine dependence, uncomplicated (3) Opioid dependence with withdrawal Status: Acute (4) Substance-induced sleep disorder Status: Acute (5) Weight loss Status: Acute (6) IVDU (intravenous drug user) Status: Chronic (7) Nicotine dependence Status: Chronic Qualifiers: Nicotine product type: cigarettes Substance use status: uncomplicated Qualified Code(s): F17.210 - Nicotine dependence, cigarettes, uncomplicated (8) Dehydration Status: Acute (9) Hepatitis C Status: Acute Qualifiers: Viral hepatitis chronicity: chronic Hepatic coma status: without hepatic coma Qualified Code(s): B18.2 - Chronic viral hepatitis C - AMA Did Patient Leave Against Medical Advice: Yes (PATIENT DID NOT WISH TO REMAIN TO COMPLETE DETOX REGIMEN.)
[2019-03-18] MEDS ORDERED: METHADONE HCL 10 MG TABLET (FOR DETOX USE ONLY) PO ONE (10:00)
[2019-03-19] MEDS ORDERED: METHADONE HCL 5 MG TABLET (FOR DETOX USE ONLY) PO ONE (06:00)
== END 2019-03-17 14:27 | disposition left against medical advice (07) | DRG 770 ==
LOC: YASAS 10:52 → Y6N 12:25
PROVIDERS: ADMIT Allergy & Immunology; ATTEND Allergy & Immunology
PROC: HZ2ZZZZ Detoxification Services for Substance Abuse Treatment (ICD-10-PCS; principal; 2019-03-14)
DX: F10.230 Alcohol dependence with withdrawal, uncomplicated (principal); F14.20 Cocaine dependence, uncomplicated; F12.20 Cannabis dependence, uncomplicated; F17.210 Nicotine dependence, cigarettes, uncomplicated; F19.282 Other psychoactive substance dependence with psychoactive substance-induced sleep disorder; E86.0 Dehydration; B18.2 Chronic viral hepatitis C; Z91.013 Allergy to seafood; Z56.0 Unemployment, unspecified
CPT/HCPCS: 36415; 71046-TC-FY; 80053; 85027; 86593